=== PATIENT | female | born 1995 | race Hispanic/Latino ===

== ENCOUNTER 2018-09-11 16:14 | Emergency (ER) | payer OTHER ==
[~2018-09-11 16:14] MED LIST: SULF-168 PO; TYL3 PO
[2018-09-11] MEDS ORDERED: OCTYL 2-CYANOACRYLATE 1 EACH TP ONE (16:25)
== END 2018-09-11 17:01 | disposition home or self-care (01) ==
LOC: EDH 16:14
DX: S61.210A Laceration without foreign body of right index finger without damage to nail, initial encounter (principal); Z89.021 Acquired absence of right finger(s); Z90.49 Acquired absence of other specified parts of digestive tract; W26.0XXA Contact with knife, initial encounter; Y93.G3 Activity, cooking and baking; Y92.098 Other place in other non-institutional residence as the place of occurrence of the external cause; Y99.8 Other external cause status
CPT/HCPCS: 12001